=== PATIENT | female | born 1985 | race Native Hawaiian/Other Pacific Islander ===

== ENCOUNTER 2018-09-13 17:40 | Emergency (ER) | payer OTHER ==
[2018-09-13] MEDS ORDERED: Lactated Ringer's 1,000 ML IV STA (18:42)
[2018-09-13] MEDS ORDERED: Dextrose 5%/Lactated Ringer's 1,000 ML IV SCH ×2 (18:45→21:13)
[2018-09-13 19:01] LABS: BASO % 0.2 % (0.0-2.0); EOS % 0.1 % (0.0-4.0); HEMOGLOBIN 11.2 g/dL (12.0-16.0); LYMPH # 1.3 K/uL (1.0-4.3); LYMPH % 12.6 % (20.0-40.0); MEAN CELL VOLUME 86.8 fl (81.0-99.0); MEAN CORPUSCULAR HEMOGLOBIN 28.4 pg (27.0-31.0); MEAN CORPUSCULAR HGB CONC 32.7 g/dL (33.0-37.0); MEAN PLATELET VOLUME 11.3 fl (7.2-11.7); MONO # 0.4 K/uL (0.0-0.8); MONO % 3.3 % (0.0-10.0); NEUT # 8.8 K/uL (1.8-7.0); NEUT % 83.8 % (50.0-75.0); RBC 3.93 Mil/uL (3.80-5.20); RED CELL DISTRIBUTION WIDTH 13.1 % (11.5-14.5); WHITE BLOOD COUNT 10.5 K/uL (4.8-10.8)
--- NOTE | 2018-09-13 19:21 | ED PDOC ---
HPI: Influenza Time Seen by Provider: 09/13/18 18:10 Chief Complaint: GI Problem Chief Complaint (Provider): Flu-like Symptoms History Per: Patient Exam Limitations: no limitations Onset/Duration Of Symptoms: Days (x1) Additional complaint(s):: 32 year old female, 27 weeks , presents to the ED for evaluation of flu- like symptoms since last night. Patient states she is nauseous with intractable non-bloody, non-bilious vomiting associated with body aches, fever, and headache. She notes she has not been able to keep any food or liquids down, and when she attempted to take Tylenol at 1600 today, she vomited. Reports her daughter is sick at home with URI symptoms / fever and had to stay home from school today, and now her is also experiencing flu-like symptoms. Otherwise, denies diarrhea, cough, runny nose, sore throat, abdominal pain, vaginal bleeding, and vaginal discharge / cramping. PMD: none provided Past Medical History Reviewed: Historical Data, Nursing Documentation, Vital Signs Vital Signs: Last Vital Signs Temp 97.6 F 09/13/18 18:02 Pulse 98 H 09/13/18 18:02 Resp 16 09/13/18 18:02 BP 93/60 L 09/13/18 18:02 Pulse Ox 99 09/13/18 18:02 - Medical History PMH: Hypothyroidism - Surgical History Surgical History: No Surg Hx - Family History Family History: States: No Known Family Hx - Social History Current smoker - smoking cessation education provided: No - Immunization History Hx Tetanus Toxoid Vaccination: No Hx Influenza Vaccination: No Hx Pneumococcal Vaccination: No - Home Medications Home Medications: Ambulatory Orders Medication Instructions Recorded Famotidine [Pepcid] 40 mg PO DAILY PRN #10 tab 09/13/18 Ondansetron ODT [Zofran ODT] 1 odt PO Q6 PRN #20 odt 09/13/18 Oseltamivir Cap [Tamiflu] 75 mg PO BID #10 cap 09/13/18 - Allergies Allergies/Adverse Reactions: Allergies Allergy/AdvReac Type Severity Reaction Status Date / Time prednisone Allergy RASH Verified 09/13/18 18:06 Review of Systems ROS Statement: Except As Marked, All Systems Reviewed And Found Negative Constitutional: Positive for: Fever, Other (body aches) ENT: Negative for: Nose Discharge, Throat Pain Respiratory: Negative for: Cough Gastrointestinal: Positive for: Nausea, Vomiting (non bloody, non bilious, intractable). Negative for: Abdominal Pain, Diarrhea Genitourinary Female: Negative for: Vaginal Discharge, Vaginal Bleeding Neurological: Positive for: Headache Physical Exam - Reviewed Nursing Documentation Reviewed: Yes Vital Signs Reviewed: Yes - Physical Exam Appears: Positive for: Non-toxic, In Acute Distress (tire appearing) Head Exam: Positive for: ATRAUMATIC, NORMOCEPHALIC Skin: Positive for: Warm, Dry Eye Exam: Positive for: EOMI, PERRL ENT: Positive for: Pharynx Is (clear), Other (dry oral mucus membranes; boggy nasal membranes) Neck: Positive for: Painless ROM, Supple Cardiovascular/Chest: Positive for: Regular Rate, Rhythm. Negative for: Murmur Respiratory: Positive for: Normal Breath Sounds. Negative for: Respiratory Distress Gastrointestinal/Abdominal: Positive for: Soft, Other (gravid over 20 weeks). Negative for: Tenderness Back: Positive for: Normal Inspection. Negative for: Muscle Spasm Extremity: Positive for: Normal ROM. Negative for: Deformity Lymphatic: Negative for: Adenopathy Neurologic/Psych: Positive for: Alert. Negative for: Motor/Sensory Deficits Medical Decision Making Medical Decision Making: Time: 1841 Initial Impression: intractable vomiting, fever DDx includes but is not limited to: influenza, viral syndrome, dehydration, electrolyte abnormality Initial Plan: --CMP --Lact acid --Lipase --Magnesium / Phosphorus chemistry --U-dip --CBC with differential --Dextrose 5%/ lactated Ringers 1000ml IV --Pepcid 20mg IVP --Tamiflu Cap 75mg PO --Zofran 4mg IVP --Blood culture --Urine culture --Influenza swab --Urinalysis Labs demonstrate low magnesium. Supplementation ordered. No emergently significant abnormalities. 9p Pt tolerated crackers and juice in ER and eager to be discharged. Reports feeling much better. Stable for discharge. Scribe Attestation: Documented by Dunia Escamilla, acting as a scribe for Rafia Velasquez MD. Provider Scribe Attestation: All medical record entries made by the Scribe were at my direction and personally dictated by me. I have reviewed the chart and agree that the record accurately reflects my personal performance of the history, physical exam, medical decision making, and the department course for this patient. I have also personally directed, reviewed, and agree with the discharge instructions and disposition. - Laboratory Results Result Diagrams: 09/13/18 18:54 09/13/18 18:54 - ECG O2 Sat by Pulse Oximetry: 99 (RA) Pulse Ox Interpretation: Normal Disposition - Clinical Impression Clinical Impression: Vomiting, Flu-like symptoms - Disposition Disposition: Routine/Home Disposition Time: 21:00 Condition: IMPROVED Additional Instructions: DRINK PLENTY OF HYDRATING FLUIDS (SUCH GATORADE) AND REST FOLLOW UP WITH YOUR [employer]ARD [employer]PER[employer] BY END OF THE WEEK TAKE TYLENOL AND ZOFRAN NEEDED. Prescriptions: Famotidine [Pepcid] 40 mg PO DAILY PRN #10 tab PRN Reason: reflux Ondansetron ODT [Zofran ODT] 1 odt PO Q6 PRN #20 odt PRN Reason: Nausea/Vomiting Oseltamivir Cap [Tamiflu] 75 mg PO BID #10 cap Instructions: Nausea and Vomiting, Adult (DC), Viral Syndrome (DC) Forms: [facility] ED School/Work Excuse
[2018-09-13 19:22] LABS: ALBUMIN 3.7 g/dL (3.5-5.0); ALT/SGPT 64 U/L (9-52); AST/SGOT 44 U/L (14-36); BLOOD UREA NITROGEN 11 mg/dl (7-17); CALCIUM 8.7 mg/dL (8.4-10.2); GFR NON-AFRICAN AMERICAN > 60; LIPASE 56 U/L (23-300)
[2018-09-13 19:42] LABS: SQUAMOUS EPITHIAL 35 /hpf (0-5); URINE BACTERIA RARE (<OCC); URINE BILIRUBIN NEGATIVE (NEGATIVE); URINE BLOOD NEGATIVE (NEGATIVE); URINE COLOR AMBER (YELLOW); URINE GLUCOSE (UA) NEG (NEGATIVE); URINE LEUKOCYTE ESTERASE TRACE Leu/uL (Negative); URINE PROTEIN 100 mg/dL (NEGATIVE)
[2018-09-13 19:49] LABS: URINE CLARITY SLIGHT-CLOUDY (Clear)
[2018-09-13] MEDS ORDERED: Magnesium Oxide 400 mg Tab UD PO STA (20:15)
[2018-09-14 01:50] VITALS: PULSE 90; O2SAT 100
[2018-09-14 02:44] VITALS: BP 95/60; RESP 18; TEMP 98
== END 2018-09-14 02:46 | disposition home or self-care (01) ==
LOC: H.ER 17:40
DX: J11.1 Influenza due to unidentified influenza virus with other respiratory manifestations (principal); O21.9 Vomiting of pregnancy, unspecified
CPT/HCPCS: 80053; 81003; 83605; 83690; 83735; 84100; 85025; 87040; 87086; 87804; 96361; 96374; 96375; 99285; J2405; J7120